=== PATIENT | female | born 1980 | race American Indian/Alaskan Native ===

== ENCOUNTER 2017-12-19 14:13 | Emergency (ER) | payer OTHER ==
--- NOTE | 2017-12-19 15:21 | ED PDOC ---
HPI: General Adult Time Seen by Provider: 12/19/17 15:04 Chief Complaint (Nursing): Female Genitourinary Chief Complaint (Provider): abd pain, History Per: Patient Additional Complaint(s): 37-year-old female currently 10 weeks presents to emergency department with cramping lower abdominal pain that started 2 days ago after patient ate a piece of fish that was undercooked. Patient has been having loose bowel movements but denies watery diarrhea. She denies any nausea or vomiting. Patient states that other family members with similar meal are experiencing similar symptoms. Patient denies any fever or chills. No associated dysuria or vaginal bleeding. The patient woke up today her abdominal pain was so severe that she could not stand up straight. She took ibuprofen yesterday which did not help. Patient is (history of previous miscarriage). Past Medical History Reviewed: Historical Data, Nursing Documentation, Vital Signs Vital Signs: Last Vital Signs Temp 99.0 F 12/19/17 14:30 Pulse 100 H 12/19/17 14:30 Resp 20 12/19/17 14:30 BP 115/55 L 12/19/17 14:30 Pulse Ox 100 12/19/17 19:31 - Medical History PMH: No Chronic Diseases - Surgical History Other surgeries: right ankle surgery - Family History Family History: States: No Known Family Hx - Living Arrangements Living Arrangements: With Family - Social History Current smoker - smoking cessation education provided: No Alcohol: None Drugs: Denies - Allergies Allergies/Adverse Reactions: Allergies Allergy/AdvReac Type Severity Reaction Status Date / Time No Known Allergies Allergy Verified 12/19/17 14:27 Review of Systems ROS Statement: Except As Marked, All Systems Reviewed And Found Negative Constitutional: Negative for: Fever Cardiovascular: Negative for: Chest Pain Respiratory: Negative for: Cough Gastrointestinal: Positive for: Abdominal Pain, Diarrhea (loose stools). Negative for: Nausea, Vomiting, Constipation Genitourinary Female: Positive for: Pelvic Pain. Negative for: Dysuria, Hematuria, Vaginal Discharge, Vaginal Bleeding Physical Exam - Reviewed Nursing Documentation Reviewed: Yes Vital Signs Reviewed: Yes - Physical Exam Appears: Positive for: Well, Non-toxic, No Acute Distress Skin: Negative for: Rash Eye Exam: Positive for: Normal appearance Cardiovascular/Chest: Positive for: Regular Rate, Rhythm Respiratory: Positive for: Normal Breath Sounds Gastrointestinal/Abdominal: Positive for: Other (Mild tenderness to lower abdominal region with palpable fibroids, no rebound or guarding) Pelvic Exam: Positive for: Other (Closed cervix, mild cervical motion tenderness , no active bleeding or discharge, palpable fibroids) Back: Negative for: L CVA Tenderness, R CVA Tenderness Extremity: Positive for: Normal ROM Neurologic/Psych: Positive for: Alert, Oriented - Laboratory Results Result Diagrams: 12/19/17 16:30 12/19/17 16:30 Urine POC: Positive Urine dip results: Positive for: Ketones. Negative for: Leukocyte Esterase, Blood, Nitrate, Glucose, Bilirubin, Protein - ECG O2 Sat by Pulse Oximetry: 100 Pulse Ox Interpretation: Normal Medical Decision Making Medical Decision Makin37 year old female with abd pain and loose stools Plan: CBC CMP Beta quant OB US IVF PO tylenol Urine test UA UDS Abd US: IMPRESSION: A single viable intrauterine gestation is identified with mean crown-rump length measurement indicating a 9 week 1 day gestational age concordant with menstrual dates. However gestational sac size suggest 11 week 0 day gestational age and is somewhat discordant. Suggest station is very low in the endometrial cavity appearing immediately proximal to the cervix without dilatation of the internal cervical os apparent. Trace subarachnoid bleed is difficult to completely exclude at the anterior inferior margins of the gestational sac. Further clinical correlation is advised as well as sonographic follow-up. A 9.7 cm heterogeneous lesion is seen at the left adnexal compartment adjacent to the uterus suggestive of probable pedunculated myoma though other etiologies are possible. Neither ovary is definitively identified. And further clinical correlation is recommended. A more definitive myoma is seen at the left lower uterine segment anteriorly, immediately anterior to the gestation. Patient is aware of abd ultrasound findings. She feels slightly better after Tylenol dose was given. Call placed to OB on-call, Dr. Callahan, he is in OR and will call back ED VADIM. Patient tolerated pelvic exam and is now requesting transvaginal US, which was ordered, US tech made aware. Disposition - Clinical Impression Clinical Impression: Fibroids, Abdominal pain affecting - Patient ED Disposition Is Patient to be Admitted: Transfer of Care - Disposition Disposition Time: 20:00 Condition: FAIR Forms: [employer] (Belgian) Patient Signed Over To: Kelvin Noyola Handoff Comments: signed out pending US and OB call back
[2017-12-19] MEDS ORDERED: Sodium Chloride 0.9% 1,000 ML IV STA (16:09)
[2017-12-19 17:48] LABS: BARBITURATES, UR NEGATIVE (NEGATIVE); BENZODIAZEPINES, UR NEGATIVE (NEGATIVE); OPIATES, UR NEGATIVE (NEGATIVE); PHENCYCLIDINE, UR NEGATIVE (NEGATIVE)
[2017-12-19 17:56] LABS: ALB/GLOB RATIO 1.1 (1.0-2.1); ALBUMIN 3.8 g/dL (3.5-5.0); ALT/SGPT 34 U/L (9-52); AST/SGOT 29 U/L (14-36); BLOOD UREA NITROGEN 6 mg/dl (7-17); CALCIUM 9.4 mg/dL (8.4-10.2); GFR AFRICAN-AMERICAN > 60; GFR NON-AFRICAN AMERICAN > 60
[2017-12-19 18:07] LABS: BASO % 0.2 % (0.0-2.0); EOS % 0.2 % (0.0-4.0); HEMOGLOBIN 12.2 g/dL (12.0-16.0); LYMPH # 0.6 K/uL (1.0-4.3); LYMPH % 3.6 % (20.0-40.0); MEAN CELL VOLUME 90.4 fl (81.0-99.0); MEAN CORPUSCULAR HEMOGLOBIN 29.5 pg (27.0-31.0); MEAN CORPUSCULAR HGB CONC 32.7 g/dL (33.0-37.0); MEAN PLATELET VOLUME 10.3 fl (7.2-11.7); MONO # 1.2 K/uL (0.0-0.8); MONO % 6.7 % (0.0-10.0); NEUT # 15.5 K/uL (1.8-7.0); NEUT % 89.3 % (50.0-75.0); NRBC % 0.1 % (0.0-0.0); PLATELET COUNT 202 K/uL (130-400); RBC 4.13 Mil/uL (3.80-5.20); RED CELL DISTRIBUTION WIDTH 14.7 % (11.5-14.5); WHITE BLOOD COUNT 17.3 K/uL (4.8-10.8)
--- NOTE | 2017-12-19 18:40 | US ---
HISTORY: 10 weeks , abd pain COMPARISON: None available. TECHNIQUE: Transvaginal study was offered to the patient however due to severe pain, the patient preferred not to be imaged in this matter. Consequently, transabdominal sonography of was performed. No prior comparison all. Images have been submitted in longitudinal and transverse projections. Nelia newell report 10/20/2017 suggesting an estimated gestational age of 10 weeks 0 days at this time. FINDINGS: UTERUS: Measures 16.8 x 9.1 x 12.1 cm. A mildly large anterior, lower uterine segment myoma is appreciated anterior to a gestational sac measuring 7.9 x 7.3 x 7.8 cm, slightly left of midline. A mass is seen lateral to the left side of the uterus measuring 8.0 x 9.7 x 6.9 cm similar in appearance to a pedunculated uterine myoma. Interrogation over this mass elicited pain from the patient. The patient's ovaries are not identified in this examination with the left adnexal finding not felt to represent an enlarged ovary though this would be the differential diagnosis. ENDOMETRIUM: Within the endometrial cavity, there is a gestational sac with a pole in evident membrane identified. Yolk sac is not clearly identified. The mean sac diameter is 5.2 cm with a mean crown-rump length of the fetus measuring 2.5 cm. These measurements correspond to 11 weeks 0 days estimated gestational age and 9 week 1 day estimated gestational age representing a discrepancy. cardiac activity is identified 177 beats per minute. This gestation is identified at the lower uterine segment, quite low in the endometrial cavity. Trace subchorionic hemorrhage is not excluded at the anterior inferior decidual reaction although this may be artifact. CERVIX: Cervical length is 3.2 cm without definite focal lesion related. The region of the internal os appears closed. RIGHT OVARY: Not identified. LEFT OVARY: Not identified. FREE FLUID: No significant free fluid noted. OTHER FINDINGS: None. IMPRESSION: A single viable intrauterine gestation is identified with mean crown-rump length measurement indicating a 9 week 1 day gestational age concordant with menstrual dates. However gestational sac size suggest 11 week 0 day gestational age and is somewhat discordant. Suggest station is very low in the endometrial cavity appearing immediately proximal to the cervix without dilatation of the internal cervical os apparent. Trace subarachnoid bleed is difficult to completely exclude at the anterior inferior margins of the gestational sac. Further clinical correlation is advised as well as sonographic follow-up. A 9.7 cm heterogeneous lesion is seen at the left adnexal compartment adjacent to the uterus suggestive of probable pedunculated myoma though other etiologies are possible. Neither ovary is definitively identified. And further clinical correlation is recommended. A more definitive myoma is seen at the left lower uterine segment anteriorly, immediately anterior to the gestation.
[2017-12-19 19:10] LABS: BANDS 3 % (0-2); BASOPHIL 1 % (0-2); LYMPHOCYTE 6 % (20-50); MONOCYTE 7 % (0-10); NEUTROPHIL 83 % (42-75); TOTAL CELLS COUNTED 100
[2017-12-19 19:11] LABS: ANISOCYTOSIS SLIGHT; LARGE PLATELETS PRESENT; PLATELET ESTIMATE NORMAL (NORMAL)
[2017-12-19] MEDS ORDERED: Lactated Ringer's 1,000 ML IV SCH (21:00)
--- NOTE | 2017-12-19 21:57 | ED PDOC ---
- Laboratory Results Result Diagrams: 12/19/17 16:30 12/19/17 16:30 Urine POC: Positive - ECG O2 Sat by Pulse Oximetry: 100 - Progress ED Course And Treament: 2199 Signed out to me pending US ordered. 2229 OB TVUS: 1. Single living intrauterine with an estimated gestational age of 9 weeks 6 days and a heart rate of 168 bpm. On re-evaluation, pt. reports moderate pain relief. Pt. with >160 ketones on urine. Denies vomiting. Reports decreased appetite since the . LR bolus x 1 ordered. Case d/w Dr. Callahan and states pt. can be dc'd with f/u with her MFM, Dr. Little with whom she has an appointment with on Saturday. Disposition - Clinical Impression Clinical Impression: Fibroids, Abdominal pain affecting - POA Present On Arrival: None - Disposition Referrals: Pily Parrish [Outside] Disposition: Routine/Home Disposition Time: 21:57 Condition: STABLE Additional Instructions: Follow up with Dr. Little on Saturday as scheduled without fail. Take Tylenol at home as needed for pain. Instructions: Uterine Fibroids (ED), Abdominal Pain in (ED) Forms: [employer] (Turkish), [facility] ED School/Work Excuse Print Language: BELGIAN
[2017-12-20 00:20] VITALS: BP 115/78; PULSE 80; RESP 18; TEMP 98.2
[2017-12-20 03:56] VITALS: O2SAT 100
--- NOTE | 2017-12-20 11:01 | US ---
PROCEDURE: OB Pelvic Ultrasound HISTORY: abd pain in COMPARISON: 12/19/2017 at 4:30 p.m. FINDINGS: UTERUS: Single Live intrauterine gestation. The gestational age is in the lower uterine segment, adjacent to an 8.1 cm lower uterine segment fibroid. CRL equivalent to 9 weeks 6 days gestatioin Gestational sac diameter equivalent to gestational sac diameter is out of range for age determination. Gestation age (Ultrasound estimated): 9 weeks 6 days Date of delivery (Ultrasound estimated) : 07/18/2018 Heart rate: 168 bpm. Ronit-gestational hemorrhage: None. Uterus measures 16.7 x 9.5 cm. Apparent pedunculated left-sided fundal fibroid, 9.4 x 8.7 x 11.6 cm. Lower uterine segment fibroid, 8.0 x 6.4 x 8.1 cm. CERVIX: The cervix is somewhat shortened, measuring 2.6 cm. It is closed. RIGHT OVARY: Measures 4.4 x 3.5 x 4.4 cm. Simple cyst, 1.9 x 1.6 x 3.4 cm. Normal flow. LEFT OVARY: Not visualized. Left adnexa partially obscured by pedunculated left-sided uterine fibroid. FREE FLUID: None. OTHER FINDINGS: None. IMPRESSION: Single live intrauterine gestation of approximately 9 weeks 6 days. This is in the lower uterine segment adjacent to a lower uterine segment fibroid. The cervix is mildly shortened but closed. No perigestational hemorrhage. heart rate 168. 3.4 cm simple right ovarian cyst. Preliminary interpretation of this examination was reported by [email or web address] at 9:13 p.m. on 12/19/2017. There is concurrence of this report with the preliminary interpretation.
== END 2017-12-20 00:50 | disposition home or self-care (01) ==
LOC: H.ER 14:13
DX: O26.899 Other specified pregnancy related conditions, unspecified trimester (principal); O34.11 Maternal care for benign tumor of corpus uteri, first trimester; Z3A.11 11 weeks gestation of pregnancy
CPT/HCPCS: 76817; 80053; 80324; 80345; 80346; 80349; 80353; 80358; 80361; 81025; 83992; 84702; 85025; 99283; J7040; J7120

== ENCOUNTER 2017-12-23 07:41 | Emergency (ER) | payer OTHER ==
[2017-12-23 08:20] VITALS: RESP 18; TEMP 98
[2017-12-23] MEDS ORDERED: Sodium Chloride 0.9% 1,000 ML IV STA (08:54)
--- NOTE | 2017-12-23 08:57 | ED PDOC ---
HPI: Female Pain Time Seen by Provider: 12/23/17 08:20 Chief Complaint (Nursing): Female Genitourinary Chief Complaint (Provider): Vaginal bleeding History Per: Patient History/Exam Limitations: no limitations Onset/Duration Of Symptoms: Days (x 1) Current Symptoms Are (Timing): Still Present Quality Of Discomfort: Cramping Additional Complaint(s): Brandon Briceño is a 37-year-old female, at approximately 11 weeks gestation, who presents to the Emergency Department complaining of vaginal spotting for 1 day. Patient also reports having intermittent abdominal cramping since Saturday12/21/17. Seen here a few days ago for gastroenteritis. Last took Tylenol last night. Of note, patient reports past medical history of multiple fibroids. OB: Dr. Snyder Abnormal Vaginal Bleeding: Yes : 2 Para: 0 Past Medical History Reviewed: Historical Data, Nursing Documentation, Vital Signs Vital Signs: Last Vital Signs Temp 98 F 12/23/17 08:15 Pulse 89 12/23/17 08:15 Resp 18 12/23/17 08:15 BP 122/85 12/23/17 08:15 Pulse Ox 98 12/23/17 08:15 - Medical History Other PMH: Multiple fibroids - Surgical History Other surgeries: Right ankle surgery - Family History Family History: States: Unknown Family Hx - Social History Current smoker - smoking cessation education provided: No Alcohol: Social Drugs: Denies - Allergies Allergies/Adverse Reactions: Allergies Allergy/AdvReac Type Severity Reaction Status Date / Time No Known Allergies Allergy Verified 12/19/17 14:27 Review of Systems ROS Statement: Except As Marked, All Systems Reviewed And Found Negative Constitutional: Negative for: Fever Cardiovascular: Negative for: Chest Pain Respiratory: Negative for: Shortness of Breath Gastrointestinal: Positive for: Abdominal Pain (cramping) Genitourinary Female: Positive for: Vaginal Bleeding Physical Exam - Reviewed Nursing Documentation Reviewed: Yes Vital Signs Reviewed: Yes - Physical Exam Appears: Positive for: Non-toxic, No Acute Distress Head Exam: Positive for: ATRAUMATIC, NORMAL INSPECTION, NORMOCEPHALIC Skin: Positive for: Normal Color, Warm, Dry Eye Exam: Positive for: EOMI, Normal appearance, PERRL Neck: Positive for: Normal, Painless ROM, Supple Cardiovascular/Chest: Positive for: Regular Rate, Rhythm. Negative for: Murmur Respiratory: Positive for: Normal Breath Sounds. Negative for: Accessory Muscle Use, Respiratory Distress Gastrointestinal/Abdominal: Positive for: Tenderness (to masses), Mass ( Multiple lower abdominal masses, normal per pt - hx of fibroids) Back: Positive for: Normal Inspection. Negative for: L CVA Tenderness, R CVA Tenderness, Vertebral Tenderness Extremity: Positive for: Normal ROM, Capillary Refill (< 2 sec). Negative for: Deformity Neurologic/Psych: Positive for: Alert, Oriented (x3) - Laboratory Results Result Diagrams: 12/23/17 09:22 12/23/17 09:22 - ECG O2 Sat by Pulse Oximetry: 98 (RA) Pulse Ox Interpretation: Normal Medical Decision Making Medical Decision Making: Initial Impression: Threatened , Uterine fibroids Time: 8:52 Initial Plan: --Blood type and screen --CMP --CBC w/ differential --PTT --Prothrombin time --Urine dip --Urinalysis --IV fluids --Pending US Transvaginal Time: 11:17 US : FINDINGS: Cardiac activity: Present Rate: 167 BPM Measurements: [place] rump length: 3.43 cm Gestational age based on CRL 10 weeks 2 days Gestational age 12 weeks 1 day based on gestational sac measurement 10 weeks 4 days cm Gestational age derived from LMP: 11 weeks 2 days FAUSTO based on LMP: 07/17/2018 FAUSTO based on biometry: 07/12/2018 Gestational concordance documented Yolk sac not identified Uterus: Unremarkable. No Cervical abnormalities: Negative examination for cervical dilatation or effacement. Closed cervix measuring 3.18 cm Subchorionic hemorrhage: None UTERUS: 9.3 x 12.8 x 18.5 cm. Multiple (7) uterine fibroids again identified ADNEXA: Right: 3.8 x 5.4 x 5.8 cm. Simple cyst 2.8 x 3.3 x 4 cm Normal Doppler arterial waveform documented. Left: Not identified Fluid in the cul-de-sac: Trace free fluid identified in the pelvis/cul de sac. IMPRESSION: Eleven weeks 2 days live intrauterine gestation. Gestational concordance documented. Markedly enlarged uterus with multiple uterine fibroids again identified. Labs reviewed, and are grossly normal. RBC is 3.78 Time: 11:25 Patient is medically stable for discharge home. Discussed ultrasound findings in detail, all questions answered. Patient will follow up with [facility] in 2-3 days for further evaluation. There is agreement to discharge plan. Return if symptoms persist or worsen. Scribe Attestation: Documented by Silvia Stoddard, acting as a scribe for Yakelin Green MD Provider Scribe Attestation: All medical record entries made by the Scribe were at my direction and personally dictated by me. I have reviewed the chart and agree that the record accurately reflects my personal performance of the history, physical exam, medical decision making, and the department course for this patient. I have also personally directed, reviewed, and agree with the discharge instructions and disposition. Disposition - Clinical Impression Clinical Impression: Threatened - Patient ED Disposition Is Patient to be Admitted: No Counseled Patient/Family Regarding: Studies Performed, Diagnosis, Need For Followup - Disposition Disposition: Routine/Home Disposition Time: 11:25 Condition: STABLE Additional Instructions: FOLLOW-UP WITH YOUR [facility] WITHIN 2 DAYS FOR REEVALUATION. Instructions: Threatened Miscarriage (ED) Forms: [employer] (Croatian) - POA Present On Arrival: None
[2017-12-23 09:30] LABS: BASO # 0.1 K/uL (0.0-0.2); BASO % 0.5 % (0.0-2.0); EOS # 0.1 K/uL (0.0-0.7); EOS % 1.1 % (0.0-4.0); LYMPH # 0.6 K/uL (1.0-4.3); LYMPH % 5.3 % (20.0-40.0); MEAN CELL VOLUME 88.9 fl (81.0-99.0); MEAN CORPUSCULAR HEMOGLOBIN 29.3 pg (27.0-31.0); MEAN CORPUSCULAR HGB CONC 32.9 g/dL (33.0-37.0); MEAN PLATELET VOLUME 8.7 fl (7.2-11.7); MONO # 0.7 K/uL (0.0-0.8); MONO % 6.3 % (0.0-10.0); NEUT # 9.6 K/uL (1.8-7.0); NEUT % 86.8 % (50.0-75.0); PLATELET COUNT 299 K/uL (130-400); RBC 3.78 Mil/uL (3.80-5.20); RED CELL DISTRIBUTION WIDTH 14.3 % (11.5-14.5)
[2017-12-23 09:41] LABS: SQUAMOUS EPITHIAL 1 /hpf (0-5); URINE BACTERIA RARE (<OCC); URINE BILIRUBIN NEGATIVE (NEGATIVE); URINE BLOOD NEGATIVE (NEGATIVE); URINE CLARITY CLOUDY (Clear); URINE COLOR AMBER (YELLOW); URINE GLUCOSE (UA) NEG (Normal); URINE LEUKOCYTE ESTERASE NEG Leu/uL (Negative); URINE NITRATE NEGATIVE (NEGATIVE); URINE PROTEIN 30 mg/dL (NEGATIVE)
[2017-12-23 09:47] LABS: ALB/GLOB RATIO 0.9 (1.0-2.1); ALBUMIN 3.4 g/dL (3.5-5.0); ALT/SGPT 19 U/L (9-52); AST/SGOT 30 U/L (14-36); BLOOD UREA NITROGEN 6 mg/dl (7-17); CALCIUM 9.5 mg/dL (8.4-10.2); GFR AFRICAN-AMERICAN > 60; GFR NON-AFRICAN AMERICAN > 60
[2017-12-23 09:54] LABS: INR 1.1 (0.9-1.2); PARTIAL THROMBOPLASTIN TIME 30.7 Seconds (25.6-37.1); PROTHROMBIN TIME 12.5 Seconds (9.8-13.1)
[2017-12-23 10:43] LABS: BANDS 2 % (0-2); EOSINOPHIL 2 % (0-7); HYPOCHROMIC SLIGHT; LYMPHOCYTE 5 % (20-50); MONOCYTE 6 % (0-10); NEUTROPHIL 85 % (42-75); PLATELET ESTIMATE NORMAL (NORMAL); TOTAL CELLS COUNTED 100
[2017-12-23 10:44] LABS: TEARDROP CELLS SLIGHT
[2017-12-23] MEDS ORDERED: Dextrose 5%/0.9% NS 1,000 ML IV ONE (10:45)
--- NOTE | 2017-12-23 11:19 | US ---
PROCEDURE: Fibroids. HISTORY: Vag spotting, fibroids COMPARISON: 01/19/2018. TECHNIQUE: Standard protocol for this study/examination. FINDINGS: LMP: 09/08/2017 Prior examinations from the current : 12/19/2017 TECHNIQUE: Real-time 2D imaging, duplex and color Doppler. FINDINGS: Cardiac activity: Present Rate: 167 BPM Measurements: [place] rump length: 3.43 cm Gestational age based on CRL 10 weeks 2 days Gestational age 12 weeks 1 day based on gestational sac measurement 10 weeks 4 days cm Gestational age derived from LMP: 11 weeks 2 days FAUSTO based on LMP: 07/17/2018 FAUSTO based on biometry: 07/12/2018 Gestational concordance documented Yolk sac not identified Uterus: Unremarkable. No Cervical abnormalities: Negative examination for cervical dilatation or effacement. Closed cervix measuring 3.18 cm Subchorionic hemorrhage: None UTERUS: 9.3 x 12.8 x 18.5 cm. Multiple (7) uterine fibroids again identified ADNEXA: Right: 3.8 x 5.4 x 5.8 cm. Simple cyst 2.8 x 3.3 x 4 cm Normal Doppler arterial waveform documented. Left: Not identified Fluid in the cul-de-sac: Trace free fluid identified in the pelvis/cul de sac. IMPRESSION: Eleven weeks 2 days live intrauterine gestation. Gestational concordance documented. Markedly enlarged uterus with multiple uterine
[2017-12-23 11:41] VITALS: BP 112/74; PULSE 88; O2SAT 99
== END 2017-12-23 12:33 | disposition home or self-care (01) ==
LOC: H.ER 07:41
DX: O20.0 Threatened abortion (principal); O34.11 Maternal care for benign tumor of corpus uteri, first trimester; Z3A.11 11 weeks gestation of pregnancy; K52.9 Noninfective gastroenteritis and colitis, unspecified
CPT/HCPCS: 76817; 80053; 81003; 85025; 85610; 85730; 86850; 86900; 96360; 96361; 99285; J7040; J7042